=== PATIENT | male | born 1950 | race Caucasian/White ===

== ENCOUNTER 2019-08-24 09:22 | Day surgery (SDC) | payer MEDICARE, OTHER ==
[~2019-08-24] VITALS: Ht 177.8 cm; Wt 113.9 kg
[~2019-08-24 09:22] MED LIST: ATOR1TAB21 PO; CHOL100029 PO; LOSA100T5 PO; NS 1,000 ML IV ONE; SPIR-10 PO
--- NOTE | 2019-08-24 11:45 | ROOR ---
Patient Name: Alfred Menjivar Procedure Date: 08/24/2019 11:29 AM Date of : 1950 Age: 68 Room: [facility] Gender: Male Note Status: Finalized Procedure: Colonoscopy Indications: Screening for colorectal malignant neoplasm Providers: Joe Velazquez Jr, MD Referring MD: Elsie Aguilar DO Requesting Provider: Medicines: Propofol per Anesthesia Complications: No immediate complications. Procedure: Pre-Anesthesia Assessment: - Prior to the procedure, a History and Physical was performed, and patient medications and allergies were reviewed. The patient is competent. The risks and benefits of the procedure and the sedation options and risks were discussed with the patient. All questions were answered and informed consent was obtained. Patient identification and proposed procedure were verified by the physician and the nurse in the pre-procedure area and in the procedure room. Mental Status Examination: alert and oriented. Airway Examination: normal oropharyngeal airway and neck mobility. Respiratory Examination: clear to auscultation. CV Examination: normal. ASA Grade Assessment: II - A patient with mild systemic disease. After reviewing the risks and benefits, the patient was deemed in satisfactory condition to undergo the procedure. The anesthesia plan was to use moderate sedation / analgesia (conscious sedation). Immediately prior to administration of medications, the patient was re-assessed for adequacy to receive sedatives. The heart rate, respiratory rate, oxygen saturations, blood pressure, adequacy of pulmonary ventilation, and response to care were monitored throughout the procedure. The physical status of the patient was re-assessed after the procedure. The Colonoscope was introduced through the anus and advanced to the cecum, identified by appendiceal orifice and ileocecal valve. The patient tolerated the procedure well. The quality of the bowel preparation was adequate. Findings: The rectum, recto-sigmoid colon, sigmoid colon, descending colon, transverse colon, ascending colon, cecum, appendiceal orifice and ileocecal valve appeared normal. Impression: - The rectum, recto-sigmoid colon, sigmoid colon, descending colon, transverse colon, ascending colon, cecum, appendiceal orifice and ileocecal valve are normal. - No specimens collected. Recommendation: - Discharge patient to home (ambulatory). - Repeat colonoscopy in 10 years for screening purposes. Joe Velazquez MD Joe Velazquez Jr, MD 08/24/2019 11:45:24 AM Electronically signed by Joe Velazquez Jr, MD Number of Addenda: 0 Note Initiated On: 08/24/2019 11:29 AM Estimated Blood Loss: Estimated blood loss: none.
[2019-08-24] MEDS ORDERED: PROPOFOL 200 MG/20 ML VIAL As Ordered ONE (11:52)
[2019-08-24] MEDS ORDERED: LIDOCAINE 2% INJ 100 MG/5 ML SDV (FOR ANES.) As Ordered ONE (11:52)
[2019-08-24 12:15] VITALS: BP 165/94
== END 2019-08-24 12:15 | disposition home or self-care (01) ==
LOC: M OPP 09:22
PROVIDERS: ATTEND Surgery
DX: Z12.11 Encounter for screening for malignant neoplasm of colon (principal); Z79.899 Other long term (current) drug therapy; Z88.4 Allergy status to anesthetic agent; Z91.018 Allergy to other foods; Z91.030 Bee allergy status

== ENCOUNTER 2025-06-08 10:17 | Day surgery (SDC) | payer MEDICARE ==
[~2025-06-08] VITALS: Ht 177.8 cm; Wt 120.7 kg
[~2025-06-08 10:17] MED LIST changes: +ATOR80TA59 PO; +ECOT81TA5 PO; +IBUP-1114 PO; -NS 1,000 ML IV ONE
[2025-06-08] MEDS ORDERED: LIDOCAINE 2% 100 MG/5 ML SDV (FOR ANES.) As Ordered ONE (11:25)
[2025-06-08 11:53] VITALS: TEMP 98.8
[2025-06-08 12:20] VITALS: BP 129/59; O2SAT 95
== END 2025-06-08 12:38 | disposition home or self-care (01) ==
LOC: M OPP 10:17
PROVIDERS: ATTEND Surgery
DX: K63.5 Polyp of colon (principal); D50.9 Iron deficiency anemia, unspecified; Z86.0100 Personal history of colon polyps, unspecified; K57.30 Diverticulosis of large intestine without perforation or abscess without bleeding; K31.89 Other diseases of stomach and duodenum; K44.9 Diaphragmatic hernia without obstruction or gangrene; K21.00 Gastro-esophageal reflux disease with esophagitis, without bleeding; I10 Essential (primary) hypertension; E78.00 Pure hypercholesterolemia, unspecified; M19.90 Unspecified osteoarthritis, unspecified site; Z91.018 Allergy to other foods; Z91.030 Bee allergy status; Z91.041 Radiographic dye allergy status; Z79.82 Long term (current) use of aspirin; Z79.899 Other long term (current) drug therapy
CPT/HCPCS: 43239; 45385; 88305; J3010

== ENCOUNTER 2025-09-12 06:03 | Day surgery (SDC) | payer MEDICARE ==
[~2025-09-12] VITALS: Ht 177.8 cm; Wt 119.4 kg
[~2025-09-12 06:03] MED LIST changes: +OMEP40CA5 PO
[2025-09-12] MEDS ORDERED: ROCURONIUM BROMIDE 50MG/5ML VIAL As Ordered ONE (06:56)
[2025-09-12] MEDS ORDERED: ONDANSETRON 4MG/2ML VIAL As Ordered ONE (06:56)
[2025-09-12] MEDS ORDERED: ACETAMINOPHEN 1000MG/100ML IV BAG As Ordered ONE (06:56)
[2025-09-12] MEDS ORDERED: SUGAMMADEX SODIUM 200 MG/2 ML VIAL As Ordered ONE (06:56)
[2025-09-12] MEDS ORDERED: LIDOCAINE 2% 100 MG/5 ML SDV (FOR ANES.) As Ordered ONE (06:56)
[2025-09-12] MEDS ORDERED: dexAMETHasone 4 MG/ML 1 ML VIAL As Ordered ONE (06:56)
[2025-09-12] MEDS ORDERED: MIDAZOLAM INJ 2 MG/2 ML VIAL As Ordered ONE (06:57)
[2025-09-12] MEDS: LR 1,000 ML IV SCH (06:58)
[2025-09-12] MEDS ORDERED: KETOROLAC 30 MG/ML 1 ML VIAL As Ordered ONE (07:04)
[2025-09-12] MEDS: ceFAZolin SOD 2 GM IV ONCE IV ONE (07:40)
[2025-09-12] MEDS ORDERED: PHENYLephrine 500MCG 5ML (100MCG/ML) SYRINGE As Ordered ONE (07:53)
[2025-09-12] MEDS ORDERED: LR 1,000 ML IV SCH (08:40)
[2025-09-12] MEDS: ONDANSETRON 4MG/2ML VIAL IV PRN (09:04)
[2025-09-12] MEDS: HYDROMORPHONE HCL 0.5 MG/0.5 ML SYRINGE IV PRN (09:04)
[2025-09-12 10:45] VITALS: BP 134/76; TEMP 96.9; O2SAT 96
== END 2025-09-12 10:56 | disposition home or self-care (01) ==
LOC: M SDC 06:03
PROVIDERS: ATTEND Surgery
DX: K42.0 Umbilical hernia with obstruction, without gangrene (principal); I10 Essential (primary) hypertension; E78.00 Pure hypercholesterolemia, unspecified; Z79.899 Other long term (current) drug therapy; K21.9 Gastro-esophageal reflux disease without esophagitis; Z91.018 Allergy to other foods; Z91.030 Bee allergy status; Z91.041 Radiographic dye allergy status
CPT/HCPCS: 49592; 88302; C1781; J0131; J0665; J0666; J0688; J1100; J1171; J1885; J2250; J2371; J2405; J3010